=== PATIENT | female | born 1955 | race Caucasian/White ===

== ENCOUNTER 2016-07-10 11:35 | Emergency (ER) | payer OTHER ==
[2016-07-10] MEDS ORDERED: CEFAZOLIN 1,000 MG VIAL ONE (12:59)
[2016-07-10] MEDS ORDERED: LIDOCAINE 1% MDV 20 ML ONE (13:11)
== END 2016-07-10 14:41 | disposition home or self-care (01) ==
LOC: ER 11:35
DX: S61.432A Puncture wound without foreign body of left hand, initial encounter (principal); R20.2 Paresthesia of skin; W25.XXXA Contact with sharp glass, initial encounter; Z23 Encounter for immunization
CPT/HCPCS: 90471; 96372